=== PATIENT | female | born 1990 | race Caucasian/White ===

== ENCOUNTER 2021-10-08 11:10 | Emergency (ER) | payer BC, SELFPAY ==
[2021-10-08 11:12] VITALS: BP 151/99; PULSE 87; RESP 14; TEMP 36.8; O2SAT 99; BMI 33.3
--- NOTE | 2021-10-08 11:23 | EKG12_ITS ---
Test Reason : chest Blood Pressure : / mmHG Vent. Rate : 076 BPM Atrial Rate : 076 BPM P-R Int : 178 ms QRS Dur : 082 ms QT Int : 372 ms P-R-T Axes : 041 008 025 degrees QTc Int : 418 ms Normal sinus rhythm Normal ECG Confirmed by LILLIE JACOBS, ANNE-MARIE ([id number]), health editor MATTHEW MENDOZA ([id number]) on 10/11/2021 9:26:11 AM Referred By: Ru Confirmed By:ANNE-MARIE MOREIRA MD
--- NOTE | 2021-10-08 11:25 | ED.VIS.CHEST ---
HPI History of Present Illness Chief Complaint: Chest Other Detail of Chief Complaint: Chest pain Informant: patient Narrative Narrative: Patient presents to the emergency department with complaint of chest discomfort off and on for the last 2 days. Patient believes that maybe she has been having some anxiety and panic attacks over the last several months. She will have episodes of lightheadedness and nausea and feeling like her heart is racing. Patient denies recent travel or surgery. She denies history of PE or DVT. No family history of heart disease. Patient does describe a pressure in her chest for the last 2 days intermittently. She was seen by nurse practitioner at work and was referred to cardiology and has an appointment in November. Patient denies any radiation of the discomfort. She denies shortness of breath or diaphoresis with this. PFSH PFSH Medical History no medical history Home Medications lorazepam 1 mg tablet (Ativan) 1 mg PO TID PRN anxiety #10 tabs 10/08/21 [Rx Last Taken Unknown] Allergy/AdvReac Type Severity Reaction Status Date / Time No Known Allergies Allergy Verified 10/08/21 11:14 Family History no significant family his Surgical History no surgical history Social History Smoking Status: Never smoker ROS ROS ED Review of Systems ROS Unobtainable: other Constitutional Constitutional ED: Reports lethargy; Denies chills, fever(s), sweats or weight loss Eyes Eyes: Denies blurry vision, change in vision or diplopia ENT ENT ED: Denies rhinorrhea or sore throat Cardiovascular Cardiovascular: Reports chest pain and racing heartbeat; Denies orthopnea Respiratory/Chest Respiratory/Chest: Reports dyspnea and dyspnea on exertion; Denies cough, orthopnea or sputum Gastrointestinal Gastrointestinal: Denies abdominal pain, diarrhea, nausea or vomiting Genitourinary Genitourinary ED: Denies dysuria, hematuria or urinary frequency Musculoskeletal Musculoskeletal: Denies arthralgias, back pain, myalgias or neck pain Integumentary Denies abscess, Abrasions or rash Neurologic Neurologic: Denies headache(s) or weakness Psychiatric Psychiatric: Denies anxiety, depression or suicidal thoughts Endocrine Endocrinology: Denies polydipsia, polyphagia or polyuria Hematologic/Lymphatic Hematologic/Lymphatic: Denies easy bleeding, easy bruising or lymphadenopathy Allergic/Immunologic Allergic/Immunologic ED: Denies mouth swelling, tongue swelling or urticaria EXAM Physical Exam Const Vital Signs: 10/08/21 11:12 10/08/21 11:23 10/08/21 11:40 Temperature 98.2 F Temperature Source Temporal Pulse Rate 87 Respiratory Rate 14 Respiratory Effort Normal Non-Labored Blood Pressure 151/99 H Blood Pressure Mean 116 Pulse Ox 99 Oxygen Delivery Method Room Air Room Air Positive well nourished and well developed General Appearance ED: well developed and NAD HEENT Reports TM's clear and moist mucous membranes normocephalic and atraumatic; Negative for trauma or tenderness Tympanic Membrane ED: Yes TM's clear Eyes PERRL and EOMs intact bilaterally General Eye ED: Negative for pale conjunctiva or scleral icterus Neck no lymphadenopathy, supple and no JVD General: Negative for tenderness Chest Wall inspection of chest normal and palpation of chest normal Chest: Negative for tenderness Resp normal respiratory effort and clear to auscultation bilaterally Effort and Inspection: Negative for respiratory distress or pain with movement Auscultation: Negative for rhonchi, wheezes or diminished lung sounds Cardio regular rate, regular rhythm, S1 normal heart sound, S2 normal heart sound and no murmurs Peripheral Pulses: pulses 2+ throughout GI normal to inspection, nondistended, normoactive bowel sounds, soft to palpation, non-tender, non-distended and no masses Back/Spine no CVA tenderness and no thoracic nor lumbar tenderness Extremity normal to inspection General Extremety ED: Negative for edema General Extremity: Negative for edema Neuro oriented x3, CN's II-XII intact bilaterally, no sensory deficits noted and gait normal Sensorium / Orientation: awake, alert, oriented to person, oriented to place and oriented to time Motor Exam: strength 5/5 throughout and strength abnormal Psych mental status grossly normal Skin no rashes or lesions noted and no wounds MDM MDM MDM Narrative Medical decision making narrative: IV line established on arrival. Lab work-up was normal. EKG was normal. Chest x-ray was normal. Discussed results with patient. We discussed possibly doing a Holter monitor for 24 hours but the episodes that she is having are sporadic. She would like to try something for anxiety instead of doing a Holter monitor and she will follow-up with cardiology. Patient also advised to actually take her pulse when she is having 1 of these episodes. Patient advised to return to the ER if syncope, persistent tachycardia, or condition should worsen anyway. Patient has heart score of 0. I feel patient is at low risk for cardiac event. Lab Data Attestation: I reviewed the patient's lab results. Labs: Laboratory Results - last 24 hr 10/08/21 10/08/21 10/08/21 11:35 11:35 11:35 WBC 4.0 L RBC 5.05 Hgb 12.0 Hct 38.7 MCV 76.6 L MCH 23.8 L MCHC 31.0 L RDW Std Deviation 41.1 RDW Coeff of Christine 14.7 H Plt Count 533 H MPV 9.1 Immature Gran % (Auto) 0.300 Neut % (Auto) 49.2 Lymph % (Auto) 36.7 Bent % (Auto) 11.8 H Eos % (Auto) 1.0 Baso % (Auto) 1.0 Absolute Neuts (auto) 2.0 Absolute Lymphs (auto) 1.46 Nucleated RBC % 0 D-Dimer Quant (PE/DVT) 0.37 Sodium 138 Potassium 3.7 Chloride 108 H Carbon Dioxide 26.0 Anion Gap 4 L BUN 8 Creatinine 0.66 Estim Creat Clear Calc 125.73 Est GFR (MDRD) Af Amer 136 Est GFR (MDRD) Non-Af 112 BUN/Creatinine Ratio 12.2 Glucose 99 Calcium 8.9 Troponin I High Sens 3 Radiography Chest X-Ray - ED: 1 View Diagnostic Testing: Clinical Impression(s) from Imaging Studies Chest X-Ray 10/08/21 11:45 IMPRESSION: No acute cardiopulmonary disease. Electronically Signed: Russ Slaughter MD at 12:15 EDT Reading Location ID and State: [facility] / [place] Tel , Service support , 1 view chest creatinine interpreted by myself no acute disease process. Radiology in agreement. EKG Initial EKG: Attestation: I personally reviewed and interpreted this EKG as follows: Comments: Sinus rhythm with a ventricular rate of 76 bpm with no acute ST segment changes Discharge Plan Triage Chief Complaint: Chest Other ED Provider: Jon Marshall Dx/Rx/DC Orders Clinical Impression: Chest pain, Anxiety Instructions: ED Anxiety Reaction, ED Chest Pain, Uncertain Cause Prescriptions: New lorazepam [Ativan] 1 mg tablet 1 mg PO TID PRN (Reason: anxiety) Qty: 10 0RF Primary Care Provider: Care Physician,Susannah Primary Referrals: Prakash Goldsmith MD [STAFF PHYSICIAN] - 3-5 Days Care Physician,No Primary [Primary Care Provider] - Disposition Disposition: Home, Self Care
[2021-10-08] MEDS: 0.9% Normal Saline 1,000 ML 150 ML IV (11:34)
[2021-10-08] MEDS: Aspirin 81 MG TAB.CHEW 324 MG PO (11:34)
[2021-10-08 11:42] LABS: Absolute Lymphocyte Count 1.46 X10^3/uL (0.83-4.51); Basophil# 0.04 X10^3/uL; Eosinophil# 0.04 X10^3/uL; Hematocrit 38.7 % (37-47); Lymphocyte # 1.46 X10^3/ul (0.83-4.51); Lymphocyte % 36.7 % (19-41); Mean Corpuscular Hgb 23.8 pg (27.0-32.0); Mean Corpuscular Volume 76.6 fL (81-99); Mean Platelet Vol. 9.1 fl (6.2-12.0); Monocyte# 0.47 X10^3/uL; Monocyte% 11.8 % (0-10); NRBC Flagged by Analyzer 0 % (0-5); Neutrophil # 1.96 X10^3/uL (2.7-7.7); Neutrophil % 49.2 % (47-70); Platelet Count 533 K/mm3 (150-450); RBC Distribution Width CV 14.7 % (11.6-14.6); RBC Distribution Width SD 41.1 fl (35.1-43.9); Red Blood Count 5.05 M/mm3 (4.2-5.4)
--- NOTE | 2021-10-08 11:45 | RAD_ITS ---
EXAM: XR CHEST, 1 VIEW CLINICAL INDICATION: chest pain TECHNIQUE: Frontal view of the chest. This report was created using [employer] report generation technology. COMPARISON: None. FINDINGS: LUNGS AND PLEURAL SPACES: Normal. No consolidation or edema. No pneumothorax. No effusion. HEART: Normal. Normal heart size. MEDIASTINUM: Central airways and mediastinal contour are unremarkable. BONES/JOINTS: Normal. SOFT TISSUES: Normal. RAD/Chest 1 View (Portable) IMPRESSION: No acute cardiopulmonary disease. Electronically Signed: Russ Slaughter MD at 12:15 EDT ,
[2021-10-08 11:52] LABS: D-Dimer Quantitative (DVT/PE) 0.37 FEU/ug/m (0.27-0.49)
[2021-10-08 11:59] LABS: Anion Gap 4 (5-15); BUN 8 mg/dL (7-18); BUN/Creat Ratio 12.2 RATIO (10-20); Calcium,Total 8.9 mg/dL (8.5-10.1); Chloride 108 mmol/L (98-107); Creatinine, Serum 0.66 mg/dL (0.55-1.02); EST Glomerular Filtration Rate 112 mL/min (>60); Est Glom Filt Rate - Afr Amer 136 mL/min (>60); Estimated Creatinine Clearance 125.73 ml/min; Glucose 99 mg/dL (74-106); Potassium 3.7 mmol/L (3.5-5.1); Sodium Level 138 mmol/L (136-145); Troponin-I HS 3 pg/mL (3.0-54.0)
[2021-10-08 12:25] VITALS: BP 134/78; PULSE 84; RESP 16; O2SAT 97
== END 2021-10-08 12:35 | disposition home or self-care (01) ==
PROVIDERS: Emergency Provider Emergency Medicine; Visit Provider Emergency Medicine
DX: R07.9 Chest pain, unspecified (principal); F41.9 Anxiety disorder, unspecified
CPT/HCPCS: 71045; 80048; 84484; 85025; 85379; 87811; 93005; 96360; 99285; J7030; A4216

== ENCOUNTER → 2021-11-30 | Outpatient (CLI) | payer BC, SELFPAY ==
[2021-11-30 15:07] LABS: Absolute Neutrophil Count 1.6 X10^3/uL (2.0-7.7); Basophil# 0.03 X10^3/uL; Basophil% 0.8 % (0-1); Eosinophils% 2.6 % (0-5); Hematocrit 41.9 % (37-47); Lymphocyte % 42.3 % (19-41); Mean Corpuscular Hgb 25.2 pg (27.0-32.0); Mean Corpuscular Volume 81.4 fL (81-99); Mean Platelet Vol. 10.3 fl (6.2-12.0); Monocyte# 0.47 X10^3/uL; Monocyte% 12.4 % (0-10); NRBC Flagged by Analyzer 0 % (0-5); Neutrophil # 1.57 X10^3/uL (2.7-7.7); Neutrophil % 41.6 % (47-70); Platelet Count 426 K/mm3 (150-450); RBC Distribution Width CV 18.4 % (11.6-14.6); RBC Distribution Width SD 53.7 fl (35.1-43.9); Red Blood Count 5.15 M/mm3 (4.2-5.4); White Blood Count 3.8 K/mm3 (4.4-11.0)
[2021-11-30 15:22] LABS: Vitamin D,25 Hydroxy 27.3 ng/mL
[2021-11-30 15:28] LABS: Ferritin 9 ng/mL (8-252); Iron 159 ug/dL (50-170); Iron Binding Capacity,Total 367 ug/dL (250-450); PERCENT IRON SATURATION 43.3 % (15.0-55.0)
== END | disposition home or self-care (01) ==
LOC: MTLAB 11:22
PROVIDERS: PCP Family Medicine; Referring Provider Family Medicine; Visit Provider Family Medicine
DX: D64.9 Anemia, unspecified (principal); E55.9 Vitamin D deficiency, unspecified
CPT/HCPCS: 36415; 82306; 82728; 83540; 83550; 85025

== ENCOUNTER → 2022-11-16 | Outpatient (CLI) | payer BC, SELFPAY ==
[2022-11-16 17:49] LABS: Absolute Lymphocyte Count 1.65 X10^3/uL (0.83-4.51); Absolute Neutrophil Count 3.2 X10^3/uL (2.0-7.7); Basophil# 0.04 X10^3/uL; Basophil% 0.7 % (0-1); Eosinophil# 0.12 X10^3/uL; Eosinophils% 2.2 % (0-5); Hematocrit 46.4 % (37-47); Hemoglobin 14.8 g/dL (12.0-15.0); Lymphocyte # 1.65 X10^3/ul (0.83-4.51); Lymphocyte % 29.6 % (19-41); Mean Corp Hgb Conc 31.9 g/dL (32-36); Mean Corpuscular Hgb 29.6 pg (27.0-32.0); Mean Corpuscular Volume 92.8 fL (81-99); Mean Platelet Vol. 10.2 fl (6.2-12.0); Monocyte# 0.55 X10^3/uL; Monocyte% 9.9 % (0-10); NRBC Flagged by Analyzer 0 % (0-5); Neutrophil % 57.2 % (47-70); Platelet Count 393 K/mm3 (150-450); RBC Distribution Width CV 12.6 % (11.6-14.6); RBC Distribution Width SD 43.2 fl (35.1-43.9); White Blood Count 5.6 K/mm3 (4.4-11.0)
[2022-11-16 18:07] LABS: Vitamin D,25 Hydroxy 26.6 ng/mL
[2022-11-16 18:08] LABS: Ferritin 111 ng/mL (8-252); Iron 111 ug/dL (50-170); Iron Binding Capacity,Total 268 ug/dL (250-450); PERCENT IRON SATURATION 41.4 % (15.0-55.0)
== END | disposition home or self-care (01) ==
LOC: BFHLAB 14:31
PROVIDERS: PCP Family Medicine; Referring Provider Family Medicine; Visit Provider Family Medicine
DX: D64.9 Anemia, unspecified (principal); E55.9 Vitamin D deficiency, unspecified
CPT/HCPCS: 36415; 82306; 82728; 83540; 83550; 85025